=== PATIENT | male | born 1965 | race African-American/Black ===

== ENCOUNTER 2022-12-19 11:45 | Emergency (ER) | payer BC, OTHER ==
[~2022-12-19] VITALS: Ht 185.4 cm; Wt 74.3 kg
[2022-12-19] MEDS ORDERED: KETOROLAC TROMETH 60MG/2ML VIAL IM ONE (12:15)
[2022-12-19 12:29] LABS: Urine Bacteria NONE SEEN /hpf (None Seen); Urine Blood 1+ /uL (Negative); Urine WBC <1 /hpf (0 - 3)
[2022-12-19 12:42] VITALS: BP 124/73; PULSE 65; RESP 17; TEMP 97.7; O2SAT 98
[2022-12-19 12:42] LABS: Basophils # (auto) 0.1 10 ^3/uL (0-0.2); Basophils % (auto) 0.6 % (0.0-2.0); Eosinophils # (auto) 0.1 10 ^3/uL (0-0.8); Eosinophils % (auto) 1.5 % (0.0-7.0); Hematocrit 44.1 % (41.0-53.0); Hemoglobin 14.6 g/dL (13.5-17.5); Lymphocytes # (auto) 2.1 10 ^3/uL (0.4-5.4); Lymphocytes % (auto) 22.2 % (10.0-50.0); Mean Corpuscular Hemoglobin 30.1 pg (28.0-32.0); Mean Corpuscular Hgb Conc. 33.2 g/dL (32.0-36.0); Mean Corpuscular Volume 90.8 fL (80.0-100.0); Monocytes # (auto) 0.8 10 ^3/uL (0-1.3); Monocytes % (auto) 8.6 % (0.0-12.0); Neutrophils # (auto) 6.3 10 ^3/uL (1.6-8.6); Neutrophils % (auto) 67.1 % (37.0-80.0); Nucleated Red Blood Cells % 0.1 %; Red Blood Cells 4.86 10^6/uL (4.5-5.90); Red Cell Distribution Width 14.6 % (11.8-14.3); White Blood Cell 9.3 10^3/uL (4.4-10.8)
[2022-12-19 12:57] LABS: Calcium 9.2 mg/dL (8.5-10.1); Potassium 4.8 mmol/L (3.5-5.1)
[2022-12-19 13:01] LABS: BUN/Creatinine Ratio 9.4 (10.0-20.0); Bilirubin, Total 0.6 mg/dL (0.2-1.0); Total Protein 7.5 g/dL (6.4-8.2)
== END 2022-12-19 13:23 | disposition home or self-care (01) ==
LOC: ER 11:45
DX: R07.89 Other chest pain (principal); F17.210 Nicotine dependence, cigarettes, uncomplicated; F10.90 Alcohol use, unspecified, uncomplicated; F12.90 Cannabis use, unspecified, uncomplicated
CPT/HCPCS: 36415; 71045; 80053; 81001; 84484; 85025; 93005; 96372; 99285; J1885

== ENCOUNTER 2023-01-10 11:41 | Emergency (ER) | payer BC ==
[~2023-01-10] VITALS: Ht 185.4 cm; Wt 73.6 kg
[2023-01-10 13:35] VITALS: BP 136/77; PULSE 78; RESP 20; TEMP 99.1; O2SAT 99
[2023-01-10] MEDS ORDERED: KETO2CRE4 TOP (13:55)
== END 2023-01-10 14:08 | disposition home or self-care (01) ==
LOC: ER 11:41
DX: B35.6 Tinea cruris (principal); F17.210 Nicotine dependence, cigarettes, uncomplicated; F10.90 Alcohol use, unspecified, uncomplicated; F15.90 Other stimulant use, unspecified, uncomplicated; Z79.899 Other long term (current) drug therapy; Y90.0 Blood alcohol level of less than 20 mg/100 ml

== ENCOUNTER 2023-04-08 14:00 | Emergency (ER) | payer BC ==
[~2023-04-08] VITALS: Ht 185.4 cm; Wt 78.1 kg
[~2023-04-08 14:00] MED LIST: KETO2CRE4 TOP
[2023-04-08 14:44] VITALS: BP 125/78; PULSE 46; RESP 16; O2SAT 96
== END 2023-04-08 19:38 | disposition left against medical advice (07) ==
LOC: ER 14:00
DX: R21 Rash and other nonspecific skin eruption (principal); Z53.21 Procedure and treatment not carried out due to patient leaving prior to being seen by health care provider